=== PATIENT | male | born 1965 | race Caucasian/White ===

== ENCOUNTER 2016-05-28 06:27 | Emergency (ER) | payer OTHER ==
[~2016-05-28] VITALS: Ht 177.8 cm; Wt 122.5 kg
[~2016-05-28 06:27] MED LIST: ULORIC40 MG PO
[2016-05-28 06:34] VITALS: BP 145/91
--- NOTE | 2016-05-28 06:44 | ED UPPER/LOWER EXTREMITY COMPL ---
History of Present Illness General Chief Complaint: Upper Extremity Problem Stated Complaint: WHOLE RIGHT ARM PAIN Source: patient Exam Limitations: no limitations Vital Signs & Intake/Output Vital Signs & Intake/Output Vital Signs Date Time Temp Pulse Resp B/P Pulse O2 O2 Flow FiO2 Ox Delivery Rate 05/28 0634 72 20 145/91 98 Room Air Allergies Coded Allergies: NO KNOWN ALLERGIES (01/30/13) Reconcile Medications Febuxostat (Uloric) 40 MG TABLET 1 TAB PO DAILY GOUT (Reported) Ibuprofen 800 MG TABLET 1 TAB PO TID PRN PAIN Oxycodone HCl/Acetaminophen (Percocet 5-325 MG Tablet) 5 MG-325 MG TABLET 1 TAB PO 4XDP PRN PAIN TEN...[id number] Triage Note: PT TO TRIAGE C/O RIGHT ARM PAIN. PT TEARFUL, STATING ARM IS "FREAKING KILLING ME". 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 PT BELIEVED THAT ARM WAS HURTING DUE TO TENDINITIS BUT IT IS STOPPING HIM FROM BEING ABLE TO SLEEP. /10 THROBBING CONSTANT PAIN. Triage Nurses Notes Reviewed? yes Onset: Gradual Duration: day(s): Timing: recent history Severity: moderate Pain/Injury Location: Right: Elbow. Method of Injury: "I was painting for 3 days" Modifying Factors: Worsens With: movement. Associated Symptoms: right elbow pain HPI: 50-year-old gentleman in prior good health, history of gout, presents with right elbow pain. 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 He says he was making a repeated motion. And then 2 days ago he developed right forearm pain worse with flexion and extension of his wrist. He notes no fever. He states it feels different from his prior gouty attacks. He tried to pills of colchicine that did not improve his pain. He notes that he is otherwise well and has no other concerns. Past History Travel History Traveled to [place] past 21 day No Medical History Any Pertinent Medical History? see below for history Neurological: HTN Musculoskeletal: gout Surgical History Surgical History: none Psychosocial History What is your primary language Japanese Tobacco Use: Current Not Daily Family History Hx Contributory? No Review of Systems Review of Systems Constitutional: Reports: no symptoms. EENTM: Reports: no symptoms. Respiratory: Reports: no symptoms. Cardiovascular: Reports: no symptoms. Gastrointestinal/Abdominal: Reports: no symptoms. Genitourinary: Reports: no symptoms. Musculoskeletal: Reports: no symptoms. Skin: Reports: no symptoms. Neurological/Psychological: Reports: no symptoms. Hematologic/Endocrine: Reports: no symptoms. Immunological: Reports: no symptoms. All Other Systems: Reviewed and Negative Physical Exam Physical Exam General Appearance: well developed/nourished, mild distress Head: atraumatic Eyes: Bilateral: normal appearance. Ears, Nose, Throat: normal pharynx, normal ENT inspection, hearing grossly normal Neck: normal inspection, supple Cardiovascular/Respiratory: regular rate/rhythm Back: normal inspection Elbow Right: focal tenderness at right lateral epicondyle. ROM is normal in right upper extremity. no sign of infection. The tenderness does not appear to be in the joint. Skin: intact, normal color, warm/dry Lymphatic: no anterior cervical ph[place] Progress Differential Diagnosis: gout, sprain, tendon injury Plan of Care: Current Medications Sig/Bry Start time Last Medication Dose Stop Time Status Admin Ibuprofen 800 MG ONCE ONE 05/28 0700 AC (Motrin) 05/28 07 Oxycodone/ 1 TAB ONCE ONE 05/28 0700 AC Acetaminophen 05/28 07 (Percocet) Departure Departure Disposition: HOME OR SELF CARE Condition: Stable Clinical Impression Primary Impression: Lateral epicondylitis of elbow Secondary Impressions: Tendonitis Referrals: ANGELY PIMENTEL,XIOMARA Dewey (PCP/Family) Departure Forms: Customer Survey General Discharge Information Prescriptions: Current Visit Scripts Ibuprofen 1 TAB PO TID PRN PAIN #60 TAB Oxycodone HCl/Acetaminophen (Percocet 5-325 MG Tablet) 1 TAB PO 4XDP PRN PAIN #10 TAB TEN...[id number] Comments encouraged close follow up.
[2016-05-28] MEDS ORDERED: IBUPROFEN800 M1 PO (06:52)
[2016-05-28] MEDS ORDERED: PERCOCET 5-3251 EACH PO (06:52)
== END 2016-05-28 07:01 ==
LOC: ERH 06:27
DX: M77.11 Lateral epicondylitis, right elbow (principal)